=== PATIENT | female | born 1965 | race Caucasian/White ===

== ENCOUNTER → 2020-09-24 | Outpatient (CLI) | payer OTHER | LOC: KOH-I 12:00 | DX: R50.9 Fever, unspecified (principal) | CPT/HCPCS: 71046 ==

== ENCOUNTER → 2020-11-19 | Outpatient (CLI) | payer OTHER | LOC: ECHO 08:45 | DX: I36.1 Nonrheumatic tricuspid (valve) insufficiency (principal); I42.9 Cardiomyopathy, unspecified; I10 Essential (primary) hypertension; R60.9 Edema, unspecified; R53.83 Other fatigue; R06.02 Shortness of breath | CPT/HCPCS: ECHO; 93306 ==

== ENCOUNTER → 2021-11-07 | Outpatient (CLI) | payer OTHER | LOC: MAMO 11-06 08:30 | DX: Z12.31 Encounter for screening mammogram for malignant neoplasm of breast (principal) | CPT/HCPCS: 77063; 77067 ==